=== PATIENT | male | born 1945 | race Caucasian/White ===

== ENCOUNTER 2022-12-02 12:20 | Emergency (ER) | payer BC ==
--- NOTE | 2022-12-02 14:45 | EDPHYS ---
Physician Documentation [facility] Name: Elvis Martinez Age: 77 yrs Sex: Male : 1945 Arrival Date: 12/02/2022 Time: 12:20 Bed 11 Private MD: ED Physician Braxton Jon HPI: 12/02 14:41 This 77 yrs old Male presents to ER via Ambulatory with complaints of Covid. rn 14:41 Patient has been sick for 1 week, tested positive for COVID. Denies shortness of rn breath. Has had COVID before. Initially his physician would not write for Paxlovid without evaluation so came in but upon arrival his PCP called in a prescription for Paxlovid. Denies any chest pain. No history of DVT or PE.. Onset: The symptoms/episode began/occurred 1 week(s) ago. Severity of symptoms: At their worst the symptoms were mild in the emergency department the symptoms are unchanged. The patient has experienced a previous episode. The patient has not recently seen a physician. Historical: - Allergies: 12:54 No Known Allergies; mb9 - Home Meds: 12:54 Lisinopril Oral [Active]; atorvastatin oral [Active]; mb9 - PMHx: 12:54 Hypertensive disorder; Hypercholesterolemia; mb9 - PSHx: 12:54 None; mb9 - Immunization history:: Adult Immunizations up to date. - Social history:: Smoking status: Patient denies any tobacco usage or history of. - Family history:: not pertinent. - Hospitalizations: : No recent hospitalization is reported. ROS: 14:41 Constitutional: Negative for fever, chills, and weight loss, Cardiovascular: Negative rn for chest pain, palpitations, and edema, Respiratory: Negative for shortness of breath, and pleuritic chest pain, Abdomen/GI: Negative for abdominal pain, nausea, vomiting, diarrhea, and constipation, Exam: 14:41 Constitutional: This is a well developed, well nourished patient who is awake, alert, rn and in no acute distress. ENT: No stridor Cardiovascular: Regular rate and rhythm. No pulse deficits. Respiratory: No increased work of breathing, no retractions or nasal flaring. Clear bilateral breath sounds MS/ Extremity: Pulses equal, no cyanosis. Neuro: Awake and alert, GCS 15 Vital Signs: 12:53 BP 159 / 83; Pulse 90; Resp 18; Temp 98.6(O); Pulse Ox 100% on R/A; Weight 88.45 kg; mb9 Height 5 ft. 10 in. ; Pain 0/10; 14:51 BP 115 / 59; Pulse 61; Resp 16; Pulse Ox 100% on R/A; mb9 12:53 Body Mass Index 27.98 (88.45 kg, 177.8 cm) mb9 12:53 Pain Scale: Adult mb9 MDM: 12:37 Patient medically screened. rn 14:41 Differential Diagnosis COVID, COVID-pneumonia, dehydration. Data reviewed: vital signs, rn nurses notes, radiologic studies, plain films, and as a result, I will discharge patient. Independent interpretation of the following test(s) in the Emergency Department X-Ray: My interpretation is Chest x-ray images negative for focal pneumonia or pneumothorax per my interpretation.. Counseling: I had a detailed discussion with the patient and/or guardian regarding the historical points, exam findings, and any diagnostic results supporting the discharge/admit diagnosis, radiology results, the need for outpatient follow up, to return to the emergency department if symptoms worsen or persist or if there are any questions or concerns that arise at home. Special discussion: I discussed with the patient/guardian in detail that at this point there is no indication for admission to the hospital. It is understood, however, that if the symptoms persist or worsen the patient needs to return immediately for re-evaluation. ED course: Patient with normal oxygenation and no oxygen requirement, as well as no focal pneumonia on chest x-ray. Will discharge home with return precautions. PCP already called and Paxlovid prescription.. 12/02 12:52 Order name: XRAY Chest (1 view) rn Administered Medications: No medications were administered Disposition Summary: 12/02/22 14:44 Discharge Ordered Notes: Location: Home rn Problem: new rn Symptoms: have improved rn Condition: Stable rn Diagnosis - SARS-associated coronavirus as the cause of diseases classified elsewhere rn Followup: rn - With: Private Physician - When: As needed - Reason: Recheck today's complaints, Re-evaluation by your physician Discharge Instructions: - Discharge Summary Sheet rn - COVID-19 rn - 10 Things You Can Do to Manage Your COVID-19 Symptoms at Home - [facility] (09/07/2020) rn - Viral Illness, Adult rn Forms: - Medication Reconciliation Form rn - Thank You Letter rn - 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
--- NOTE | 2022-12-02 14:45 | ER ---
Nurse's Notes [facility] Name: Elvis Martinez Age: 77 yrs Sex: Male : 1945 Arrival Date: 12/02/2022 Time: 12:20 Bed 11 Private MD: Diagnosis: SARS-associated coronavirus as the cause of diseases classified elsewhere Presentation: 12/02 12:53 Chief complaint: Patient states: "I started having a cough and nasal congestion so I mb9 took a at home COVID test yesterday and it was positive." Pt denies N/V/D/SOB. Coronavirus screen: Vaccine status: Patient reports being unvaccinated. Ebola Screen: No symptoms or risks identified at this time. Initial Sepsis Screen: Does the patient meet any 2 criteria? No. Patient's initial sepsis screen is negative. Does the patient have a suspected source of infection? No. Patient's initial sepsis screen is negative. Risk Assessment: Do you want to hurt yourself or someone else? Patient reports no desire to harm self or others. Onset of symptoms was 2022. 12:53 Method Of Arrival: Ambulatory mb9 12:53 Acuity: GABE 4 mb9 Triage Assessment: 12:55 General: Appears in no apparent distress. Behavior is calm, cooperative. Pain: Denies mb9 pain. EENT: Oral mucosa is moist. Throat is clear. Neuro: Jensen Agitation-Sedation Scale (RASS): 0 - Alert and Calm Level of Consciousness is awake, alert, obeys commands, Oriented to person, place, time, situation, Appropriate for age. Cardiovascular: Patient's skin is warm and dry. Respiratory: Airway is patent Respiratory effort is even, unlabored, Respiratory pattern is regular, symmetrical, Breath sounds are clear bilaterally. GI: Abdomen is round non-distended, Bowel sounds present X 4 quads. Abd is soft and non tender X 4 quads. Patient currently denies diarrhea, nausea, vomiting. : No signs and/or symptoms were reported regarding the genitourinary system. Derm: Skin is pink, warm \\T\\ dry. Musculoskeletal: Range of motion: intact in all extremities. Historical: - Allergies: 12:54 No Known Allergies; mb9 - Home Meds: 12:54 Lisinopril Oral [Active]; atorvastatin oral [Active]; mb9 - PMHx: 12:54 Hypertensive disorder; Hypercholesterolemia; mb9 - PSHx: 12:54 None; mb9 - Immunization history:: Adult Immunizations up to date. - Social history:: Smoking status: Patient denies any tobacco usage or history of. - Family history:: not pertinent. - Hospitalizations: : No recent hospitalization is reported. Screenin:56 [facility] ED Fall Risk Assessment (Adult) History of falling in the last 3 months, mb9 including since admission No falls in past 3 months (0 pts) Confusion or Disorientation No (0 pts) Intoxicated or Sedated No (0 pts) Impaired Gait No (0 pts) Mobility Assist Device Used No (0 pt) Altered Elimination No (0 pt) Score/Fall Risk Level 0 - 2 = Low Risk Oriented to surroundings, Maintained a safe environment, Educated pt \\T\\ family on fall prevention, incl call for assistance when getting out of bed. Abuse screen: Denies threats or abuse. Nutritional screening: No deficits noted. Tuberculosis screening: No symptoms or risk factors identified. Assessment: 12:56 Reassessment: see triage assessment. mb9 13:56 Reassessment: No changes from previously documented assessment. Patient and/or family mb9 updated on plan of care and expected duration. Pain level reassessed. Patient is alert, oriented x 3, equal unlabored respirations, skin warm/dry/pink. 14:51 Reassessment: No changes from previously documented assessment. Patient and/or family mb9 updated on plan of care and expected duration. Pain level reassessed. Patient is alert, oriented x 3, equal unlabored respirations, skin warm/dry/pink. Vital Signs: 12:53 BP 159 / 83; Pulse 90; Resp 18; Temp 98.6(O); Pulse Ox 100% on R/A; Weight 88.45 kg; mb9 Height 5 ft. 10 in. ; Pain 0/10; 14:51 BP 115 / 59; Pulse 61; Resp 16; Pulse Ox 100% on R/A; mb9 12:53 Body Mass Index 27.98 (88.45 kg, 177.8 cm) mb9 12:53 Pain Scale: Adult mb9 ED Course: 12:26 Patient arrived in ED. mg5 12:37 Braxton Jon MD is Attending Physician. rn 12:52 Breneman, Coco, RN is Primary Nurse. mb9 12:53 Arm band placed on. mb9 12:54 Triage completed. mb9 12:56 Placed in gown. Bed in low position. Call light in reach. Side rails up X 1. Client mb9 placed on continuous cardiac and pulse oximetry monitoring. NIBP monitoring applied. 12:56 No provider procedures requiring assistance completed. mb9 14:01 XRAY Chest (1 view) In Process Unspecified. EDMS 14:51 Patient did not have IV access during this emergency room visit. mb9 Administered Medications: No medications were administered Medication: 12:56 VIS not applicable for this client. mb9 Outcome: 14:44 Discharge ordered by . rn 14:51 Discharged to home ambulatory, mb9 14:51 Condition: stable 14:51 Discharge instructions given to patient, Instructed on discharge instructions, follow up and referral plans. Demonstrated understanding of instructions, follow-up care, 14:52 Patient left the ED. mb9 Signatures: Dispatcher [employer] EDAK Braxton Jon MD MD rn Breneman, Mary Beth RN RN Ginger Turk mg5
--- NOTE | 2022-12-02 15:01 | RAD REPORT ---
EXAM DESCRIPTION: Dilip Single View12/02/2022 1:59 pm CLINICAL HISTORY: COVID +;Cough COMPARISON: No comparisons TECHNIQUE: Portable AP view of the chest. FINDINGS: The lungs are clear. No pneumothorax or effusion. The cardiomediastinal contours are unre markable. IMPRESSION: No acute cardiopulmonary process.
[2022-12-02 15:05] VITALS: TEMP 98.6; O2SAT 100
[2022-12-02 15:06] VITALS: BP 115/59
== END 2022-12-02 14:52 | disposition home or self-care (01) ==
LOC: ER 12:20
DX: U07.1 COVID-19 (principal); I10 Essential (primary) hypertension
CPT/HCPCS: 71045; 99283